=== PATIENT | male | born 1955 | race Caucasian/White ===

== ENCOUNTER 2017-04-13 05:38 | Day surgery (SDC) | payer BC ==
--- NOTE | ~2017-04-13 | EGD ---
EGD REPORT [facility] [address] [place] [address] NAME: MOHINDER NIXON : 55 STATUS : REG [facility]#: [id number] AGE: 61 ADM/REG DATE : 04/13/17 MR#: [id number] REPORT SERV DATE: 04/13/17 DICTATED BY: MARCELL POE DATE: 04/13/17 REPORT STATUS : Draft TRANSCRIBED BY: [facility] DATE: 04/13/17 Endoscopy Center Patient Name: Mohinder Nixon Date of : 1955 Attending MD: MARCELL POE MD Procedure Date No Time: 04/13/2017 Procedure: Colonoscopy Indications: Screening in patient at increased risk: Family history 1st-degree relative with colorectal cancer < 60 years old Referring MD: CON QUEEN Medicines: as per anesthesia Complications: No immediate complications. Procedure: Pre-Anesthesia Assessment: - ASA Grade Assessment: II - A patient with mild systemic disease. After I obtained informed consent, the scope was passed under direct vision. Throughout the procedure, the patient's blood pressure, pulse, and oxygen saturations were monitored continuously. The [facility] [id number] was introduced through the anus and advanced to the cecum, identified by appendiceal orifice and ileocecal valve. The colonoscopy was performed without difficulty. The patient tolerated the procedure. The quality of the bowel preparation was fair. Findings: The perianal and digital rectal examinations were normal. A few small-mouthed diverticula were found in the sigmoid colon. Internal hemorrhoids were found during endoscopy and were mild. Impression: - Diverticulosis in the sigmoid colon. - Internal hemorrhoids. Recommendation: - Repeat colonoscopy in 5 years for surveillance. Procedure Code(s): --- Professional --- 96715, Colonoscopy, flexible, proximal to splenic flexure; diagnostic, with or without collection of specimen(s) by brushing or washing, with or without colon decompression (separate procedure) Diagnosis Code(s): --- Professional --- K64.8, Other hemorrhoids K57.30, Diverticulosis of large intestine without perforation or abscess without bleeding EGD REPORT [facility] [address] [facility] [place] [address] NAME: MOHINDER NIXON : 55 [place]US [place] [facility]#: [id number] AGE: 61 ADM/REG DATE : 04/13/17 MR#: [id number] REPORT SERV DATE: 04/13/17 DICTATED BY: MARCELL POE. DATE: 04/13/17 REPORT STATUS : Draft TRANSCRIBED BY: [employer] DATE: 04/13/17 Z12.11, Encounter for screening for malignant neoplasm of colon Z80.0, Family history of malignant neoplasm of digestive organs CPT copyright 2013 [employer]. All rights reserved. 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 MARCELL POE MD 04/13/2017 7:49 AM This report has been signed electronically. Number of Addenda: 0 Note Initiated On: 04/13/2017 7:10 AM Scope Withdrawal Time 0 hours 9 minutes 6 seconds [id number] [facility] [address] [place] [address]
== END 2017-04-13 23:59 | disposition home or self-care (01) ==
LOC: DMU 05:38
PROVIDERS: Internal Medicine Gastroenterology
PROC: 0DJD8ZZ Inspection of Lower Intestinal Tract, Via Natural or Artificial Opening Endoscopic (ICD-10-PCS; principal; 2017-04-13 07:26)
DX: Z12.11 Encounter for screening for malignant neoplasm of colon (principal); K64.8 Other hemorrhoids; K57.30 Diverticulosis of large intestine without perforation or abscess without bleeding; Z80.0 Family history of malignant neoplasm of digestive organs; K21.9 Gastro-esophageal reflux disease without esophagitis; Z79.899 Other long term (current) drug therapy
CPT/HCPCS: A9270-GY